=== PATIENT | female | born 1990 | race Caucasian/White ===

== ENCOUNTER 2018-12-18 12:35 | Emergency (ER) | payer OTHER ==
[~2018-12-18] VITALS: Ht 165.1 cm; Wt 99.8 kg
[2018-12-18 13:26] LABS: INFLUENZA A ANTIGEN None Detected (None Detect); INFLUENZA B ANTIGEN None Detected (None Detect)
[2018-12-18] MEDS ORDERED: PREDNISONE 20 M20 M1 PO (13:33)
[2018-12-18] MEDS ORDERED: AZITHROMYCIN 2250 MG PO (13:33)
[2018-12-18 13:46] VITALS: BP 130/91
== END 2018-12-18 13:46 | disposition home or self-care (01) ==
LOC: M.ERS 12:35
PROVIDERS: Nurse Practitioner Family
DX: J06.9 Acute upper respiratory infection, unspecified (principal); Z88.1 Allergy status to other antibiotic agents; Z88.2 Allergy status to sulfonamides; Z88.8 Allergy status to other drugs, medicaments and biological substances

== ENCOUNTER 2019-02-15 20:27 | Emergency (ER) | payer OTHER ==
[~2019-02-15] VITALS: Ht 165.1 cm; Wt 113.4 kg
[~2019-02-15 20:27] MED LIST: AZITHROMYCIN 2250 MG PO; PREDNISONE 20 M20 M1 PO
[2019-02-15] MEDS ORDERED: NOHOMEMEDICATIONS (20:44)
[2019-02-15 21:14] LABS: ABSOLUTE BASOPHILS 0.1 thou/uL (0.0-0.2); ABSOLUTE EOSINOPHILS 0.2 thou/uL (0.0-0.7); ABSOLUTE LYMPHOCYTES 3.9 thou/uL (0.8-5.3); ABSOLUTE MONOCYTES 1.1 thou/uL (0.0-1.2); ABSOLUTE NEUTROPHILS 5.9 thou/uL (1.6-8.1); BASOPHILS 0.6 %; EOSINOPHILS 1.6 %; HEMATOCRIT 44.2 % (37.0-47.0); HEMOGLOBIN 14.8 gm/dL (12.0-15.0); LYMPHOCYTES 35.4 %; MCH 28.3 pg (26.0-34.0); MCHC 33.4 g/dL (28.0-37.0); MCV 84.8 fL (80.0-100.0); MONOCYTES 9.5 %; MPV 8.7 fl. (7.2-11.1); NUCLEATED RBCS 0 /100WBC; PLATELET COUNT* 352 thou/uL (150-400); POLYS 52.9 %; RBC 5.22 mil/uL (4.20-5.00); RDW-CV 14.1 % (10.5-14.5); WBC 11.1 thou/uL (4.0-11.0)
[2019-02-15 21:20] LABS: ANION GAP 13 mmol/L (7-16); BUN 12 mg/dL (7-18); CALCIUM 9.4 mg/dL (8.5-10.1); CHLORIDE 102 mmol/L (98-107); CO2 27 mmol/L (21-32); CREATININE 0.8 mg/dL (0.6-1.3); GLUCOSE 87 mg/dL (70-99); POTASSIUM 3.6 mmol/L (3.5-5.1); SODIUM 142 mmol/L (136-145)
[2019-02-15 21:29] LABS: ALBUMIN 3.9 g/dL (3.4-5.0); ALKALINE PHOSPHATASE 79 U/L (46-116); LIPASE 86 U/L (73-393); MAGNESIUM 1.9 mg/dL (1.8-2.4); SGOT 13 U/L (15-37); SGPT 22 U/L (30-65); TOTAL BILIRUBIN 0.4 mg/dL (<0.1-1.0); TOTAL PROTEIN 7.5 g/dL (6.4-8.2); TROPONIN-I LEVEL <0.06 ng/mL (<0.06)
[2019-02-15] MEDS ORDERED: FLEXERIL PO (22:57)
[2019-02-15] MEDS ORDERED: ATIVAN1 MG PO (22:57)
[2019-02-15 23:23] VITALS: BP 131/83
--- NOTE | 2019-02-16 17:37 | EKG ---
[place] [address] ELECTROCARDIOGRAM REPORT Name: NAHID EVANS Room: [facility]#: [id number] Admission: 02/15/19 Attend Phys: Discharge: 02/15/19 Date of : 89 Report #: [id number] THIS REPORT FOR: //name// [facility] ED Test Date: 2019-02-15 Test Time: 20:31:53 Pat Name: NAHID EVANS Department: Room: Gender: F [employer]: TACOS : 1990 Requested By: Zander Cheek Order Number: [id number] MD: Bobby Yun Measurements Intervals [place] Rate: 88 P: 53 [place]: 168 QRS: 20 QRSD: 80 T: 49 QT: 363 QTc: 440 Interpretive Statements Sinus rhythm Baseline wander in lead(s) I,II,III,aVR,aVF,V4 No previous ECG available for comparison Electronically Signed On 02-16-2019 17:37:07 CDT by Bobby Yun [email or web address] <ELECTRONICALLY SIGNED> By: Bobby Yun MD, [facility] 02/16/19 1737 30 30 Bobby Yun MD, FAC /EPI
== END 2019-02-15 23:48 | disposition home or self-care (01) ==
LOC: M.ERS 20:27
PROVIDERS: Emergency Medicine Emergency Medical Services
DX: F41.9 Anxiety disorder, unspecified (principal); M94.0 Chondrocostal junction syndrome [Tietze]; F17.210 Nicotine dependence, cigarettes, uncomplicated; Z88.1 Allergy status to other antibiotic agents; Z88.2 Allergy status to sulfonamides; Z88.8 Allergy status to other drugs, medicaments and biological substances; Z90.89 Acquired absence of other organs

== ENCOUNTER 2019-03-05 19:20 | Emergency (ER) | payer OTHER ==
[~2019-03-05] VITALS: Ht 165.1 cm; Wt 108.9 kg
[~2019-03-05 19:20] MED LIST changes: +ATIVAN1 MG PO; +FLEXERIL PO; +NOHOMEMEDICATIONS
[2019-03-05 19:36] LABS: URINE BILIRUBIN NEGATIVE (Negative); URINE BLOOD 1+ (Negative); URINE CLARITY SL CLOUDY; URINE COLOR STRAW; URINE GLUCOSE-RANDOM NEGATIVE (Negative); URINE KETONES NEGATIVE (Negative); URINE NITRITE-REFLEX NEGATIVE (Negative); URINE PROTEIN NEGATIVE (Negative); URINE UROBILINOGEN 0.2 E.U./dl (0.2-1.0)
[2019-03-05 19:37] LABS: URINE LEUKOCYTES-REFLEX 2+ (Negative)
[2019-03-05] MEDS ORDERED: PHENAZOPYRIDIN200 M2 PO (19:47)
[2019-03-05] MEDS ORDERED: CIPRO500 MG PO (19:47)
[2019-03-05] MEDS ORDERED: IBUPROFEN 800800 M1 PO (19:47)
[2019-03-05 19:55] LABS: MUCUS None Seen strn/LPF (None Seen); SQUAMOUS >10 Many /LPF (0-3)
[2019-03-05 19:56] LABS: BACTERIA-REFLEX 1-9 Few /HPF (None Seen); WBC CLUMPS Few (None Seen)
[2019-03-05 19:57] LABS: CASTS None Seen /LPF (None Seen); CRYSTALS None Seen /LPF (None Seen); URINE RBC None Seen /HPF (0-2)
[2019-03-05 20:15] VITALS: BP 112/72
== END 2019-03-05 20:00 | disposition home or self-care (01) ==
LOC: M.ERS 19:20
PROVIDERS: Nurse Practitioner Family
DX: N39.0 Urinary tract infection, site not specified (principal); F17.210 Nicotine dependence, cigarettes, uncomplicated; J45.909 Unspecified asthma, uncomplicated; Z88.1 Allergy status to other antibiotic agents; Z88.2 Allergy status to sulfonamides; Z88.8 Allergy status to other drugs, medicaments and biological substances; Z90.89 Acquired absence of other organs; Z90.49 Acquired absence of other specified parts of digestive tract

== ENCOUNTER 2019-05-09 08:10 | Emergency (ER) | payer OTHER ==
[~2019-05-09] VITALS: Ht 165.1 cm; Wt 104.3 kg
[~2019-05-09 08:10] MED LIST changes: +CIPRO500 MG PO; +IBUPROFEN 800800 M1 PO; +LEXAPRO 10 MG T10 M1 PO; +LOESTRIN FE 1-1 EACH PO; +PHENAZOPYRIDIN200 M2 PO; +XANAX 0.5 MG0.5 MG PO; +ZPAK PO
[2019-05-09 09:05] LABS: ABSOLUTE BASOPHILS 0.1 thou/uL (0.0-0.2); ABSOLUTE EOSINOPHILS 0.2 thou/uL (0.0-0.7); ABSOLUTE LYMPHOCYTES 2.1 thou/uL (0.8-5.3); ABSOLUTE MONOCYTES 0.6 thou/uL (0.0-1.2); ABSOLUTE NEUTROPHILS 4.9 thou/uL (1.6-8.1); BASOPHILS 0.7 %; HEMATOCRIT 42.8 % (37.0-47.0); HEMOGLOBIN 14.8 gm/dL (12.0-15.0); LYMPHOCYTES 27.1 %; MCHC 34.6 g/dL (28.0-37.0); MCV 86.6 fL (80.0-100.0); MONOCYTES 8.2 %; NUCLEATED RBCS 0 /100WBC; PLATELET COUNT* 339 thou/uL (150-400); RBC 4.94 mil/uL (4.20-5.00); RDW-CV 13.4 % (10.5-14.5); WBC 7.9 thou/uL (4.0-11.0)
[2019-05-09 09:07] LABS: URINE BILIRUBIN NEGATIVE (Negative); URINE BLOOD TRACE (Negative); URINE CLARITY CLEAR; URINE COLOR YELLOW; URINE GLUCOSE-RANDOM NEGATIVE (Negative); URINE KETONES NEGATIVE (Negative); URINE LEUKOCYTES-REFLEX NEGATIVE (Negative); URINE NITRITE-REFLEX NEGATIVE (Negative); URINE PROTEIN NEGATIVE (Negative); URINE SPECIFIC GRAVITY 1.015 (1.005-1.030); URINE UROBILINOGEN 0.2 E.U./dl (0.2-1.0)
[2019-05-09 09:18] LABS: AMP/METHAMP Negative (Negative); BARBITURATES Negative (Negative); BENZODIAZEPINES Negative (Negative); COCAINE Negative (Negative); METHADONE Negative (Negative); OPIATES Negative (Negative); PCP Negative (Negative); THC POSITIVE (Negative)
[2019-05-09 09:23] LABS: CALCIUM 8.6 mg/dL (8.5-10.1); CREATININE 0.7 mg/dL (0.6-1.3); POTASSIUM 3.8 mmol/L (3.5-5.1)
[2019-05-09 09:28] LABS: ALBUMIN 3.4 g/dL (3.4-5.0); TOTAL BILIRUBIN 0.3 mg/dL (<0.1-1.0); TOTAL PROTEIN 7.2 g/dL (6.4-8.2)
[2019-05-09] MEDS ORDERED: ACETAMINOPHEN-1 EAC1 PO (09:54)
[2019-05-09] MEDS ORDERED: PHENERGAN 25 MG25 M1 PO (09:54)
[2019-05-09] MEDS ORDERED: IBUPROFEN 800800 M1 PO (09:54)
[2019-05-09 10:08] VITALS: BP 148/89
== END 2019-05-09 10:09 | disposition home or self-care (01) ==
LOC: M.ERS 08:10
PROVIDERS: Personal Emergency Response Attendant
DX: G43.909 Migraine, unspecified, not intractable, without status migrainosus (principal); R11.2 Nausea with vomiting, unspecified; F17.210 Nicotine dependence, cigarettes, uncomplicated; J45.909 Unspecified asthma, uncomplicated; Z88.1 Allergy status to other antibiotic agents; Z88.2 Allergy status to sulfonamides; Z88.8 Allergy status to other drugs, medicaments and biological substances; Z90.89 Acquired absence of other organs; Z90.49 Acquired absence of other specified parts of digestive tract

== ENCOUNTER 2019-05-15 09:03 | Emergency (ER) | payer OTHER ==
[~2019-05-15] VITALS: Ht 165.1 cm; Wt 104.3 kg
[~2019-05-15 09:03] MED LIST changes: +ACETAMINOPHEN-1 EAC1 PO; +PHENERGAN 25 MG25 M1 PO
[2019-05-15] MEDS ORDERED: BUSPIRONE HCL10 MG PO (09:09)
[2019-05-15] MEDS ORDERED: KEFLEX500 M1 PO (10:09)
[2019-05-15 10:19] VITALS: BP 128/88
== END 2019-05-15 10:16 | disposition home or self-care (01) ==
LOC: M.ERS 09:03
DX: J02.9 Acute pharyngitis, unspecified (principal); F17.210 Nicotine dependence, cigarettes, uncomplicated; J45.909 Unspecified asthma, uncomplicated; Z88.1 Allergy status to other antibiotic agents; Z88.2 Allergy status to sulfonamides; Z88.8 Allergy status to other drugs, medicaments and biological substances; Z90.89 Acquired absence of other organs; Z90.49 Acquired absence of other specified parts of digestive tract

== ENCOUNTER 2019-05-17 21:14 | Emergency (ER) | payer OTHER ==
[~2019-05-17] VITALS: Ht 165.1 cm; Wt 104.3 kg
[~2019-05-17 21:14] MED LIST changes: +BUSPIRONE HCL10 MG PO; +KEFLEX500 M1 PO
[2019-05-17 21:19] VITALS: BP 138/65
[2019-05-17] MEDS ORDERED: KEFLEX500 M1 PO (21:32)
[2019-05-17] MEDS ORDERED: PREDNISONE 20 M20 MG PO (21:32)
== END 2019-05-17 21:38 | disposition home or self-care (01) ==
LOC: M.ERS 21:14
DX: J45.909 Unspecified asthma, uncomplicated (principal); J02.0 Streptococcal pharyngitis; F17.210 Nicotine dependence, cigarettes, uncomplicated; Z88.1 Allergy status to other antibiotic agents; Z88.2 Allergy status to sulfonamides; Z98.890 Other specified postprocedural states; Z90.49 Acquired absence of other specified parts of digestive tract

== ENCOUNTER 2019-07-15 04:41 | Emergency (ER) | payer OTHER ==
[~2019-07-15 04:41] MED LIST changes: +PREDNISONE 20 M20 MG PO
== END 2019-07-15 06:26 | disposition home or self-care (01) ==
LOC: M.ERS 04:41
DX: Z02.89 Encounter for other administrative examinations (principal)

== ENCOUNTER 2019-08-28 09:19 | Emergency (ER) | payer OTHER ==
[~2019-08-28] VITALS: Ht 165.1 cm; Wt 108.9 kg
[2019-08-28 09:47] LABS: CREATININE 0.7 mg/dL (0.6-1.3); POTASSIUM 3.9 mmol/L (3.5-5.1)
[2019-08-28 11:23] VITALS: BP 114/46
== END 2019-08-28 11:23 | disposition home or self-care (01) ==
LOC: M.ERS 09:19
PROVIDERS: Emergency Medicine Emergency Medical Services
DX: G43.909 Migraine, unspecified, not intractable, without status migrainosus (principal); R11.2 Nausea with vomiting, unspecified; J45.909 Unspecified asthma, uncomplicated; F41.9 Anxiety disorder, unspecified; F32.9 Major depressive disorder, single episode, unspecified; F17.210 Nicotine dependence, cigarettes, uncomplicated; Z88.1 Allergy status to other antibiotic agents; Z88.2 Allergy status to sulfonamides; Z98.890 Other specified postprocedural states

== ENCOUNTER 2019-10-08 10:09 | Emergency (ER) | payer OTHER ==
[~2019-10-08] VITALS: Ht 165.1 cm; Wt 108.9 kg
[2019-10-08 10:44] LABS: INFLUENZA A ANTIGEN Negative (Negative); INFLUENZA B ANTIGEN Negative (Negative)
[2019-10-08] MEDS ORDERED: TRAMADOL 50 MG50 MG PO (11:00)
[2019-10-08] MEDS ORDERED: ZPAK PO (11:00)
[2019-10-08] MEDS ORDERED: PREDNISONE 20 M20 MG PO (11:00)
[2019-10-08 11:08] VITALS: BP 132/89
== END 2019-10-08 11:08 | disposition home or self-care (01) ==
LOC: M.ERS 10:09
PROVIDERS: Nurse Practitioner Family
DX: J02.9 Acute pharyngitis, unspecified (principal); J45.909 Unspecified asthma, uncomplicated; F17.210 Nicotine dependence, cigarettes, uncomplicated; Z88.1 Allergy status to other antibiotic agents; Z88.2 Allergy status to sulfonamides; Z90.89 Acquired absence of other organs; Z90.49 Acquired absence of other specified parts of digestive tract

== ENCOUNTER 2019-11-17 08:37 | Emergency (ER) | payer OTHER ==
[~2019-11-17] VITALS: Ht 165.1 cm; Wt 113.4 kg
[~2019-11-17 08:37] MED LIST changes: +TRAMADOL 50 MG50 MG PO
[2019-11-17] MEDS ORDERED: NORCO 5-325 TA1 EAC1 PO (10:05)
[2019-11-17 10:37] VITALS: BP 141/84
== END 2019-11-17 10:38 | disposition home or self-care (01) ==
LOC: M.ERS 08:37
DX: S80.02XA Contusion of left knee, initial encounter (principal); J45.909 Unspecified asthma, uncomplicated; F41.9 Anxiety disorder, unspecified; F32.9 Major depressive disorder, single episode, unspecified; Z90.89 Acquired absence of other organs; Z98.890 Other specified postprocedural states; F17.210 Nicotine dependence, cigarettes, uncomplicated; Z88.1 Allergy status to other antibiotic agents; Z88.2 Allergy status to sulfonamides; Z88.8 Allergy status to other drugs, medicaments and biological substances; W10.9XXA Fall (on) (from) unspecified stairs and steps, initial encounter; Y92.89 Other specified places as the place of occurrence of the external cause; Y93.89 Activity, other specified; Y99.8 Other external cause status